=== PATIENT | female | born 1975 | race Caucasian/White ===

== ENCOUNTER 2016-08-28 08:54 | Day surgery (SDC) | payer BC ==
[~2016-08-28 08:54] MED LIST: RINGERS SOLUTION,LACTATED 1,000 ML IV PRN; ceFAZolin SODIUM 1 GM in DEXTROSE 5 % IN WATER 100 ML IV PRN
--- OUTSIDE RECORDS SUMMARY | 2016-08-28 08:57 | XMS REPORT | Continuity of Care Document ---
:1975 Author Organization [facility] ([facility]) Address [address] [place] [address] Phone [phone] Care Team Providers Name Role Phone Jessica Gallo Primary Care Provider [phone] Source Comments This disclosure is being made pursuant to the Care Everywhere program, applicable federal and state laws, and may not contain all informaitonavailable regarding this patient.[facility] ([facility]) Active Allergies and Adverse Reactions Allergen Noted Date Severity Reactions Comments Adhesive 02/01/2016 Rash bandaids in particular Pollen 02/01/2016 Rhinorrhea Current Medications Prescription Sig. Disp. Refills Start Date End Date Status ibuprofen 200 mg tablet Take 200 mg by mouth Active every 6 hours as needed. Active Problems No known active problems Social History Tobacco Use Types Packs/Day Years Used Date Current Every Day Smoker 0.5 15 Smokeless Tobacco: Never Used Tobacco Cessation:Ready to Quit: No Comments: Last Filed Vital Signs Vital Sign Reading Time Taken Blood Pressure 142/85 02/01/2016 2:20 PM CDT Pulse 89 02/01/2016 2:20 PM CDT Temperature 36.5 C (97.7 F) 02/01/2016 2:20 PM CDT Respiratory Rate - - Height 1.718 m (5' 7.64") 02/01/2016 2:20 PM CDT Weight 113.9 kg (251 lb 1.7 oz) 02/01/2016 2:20 PM CDT Body Mass Index 38.59 02/01/2016 2:20 PM CDT Oxygen Saturation - - Plan of Care Health Maintenance Due Date Last Done Comments Hepatitis B Vaccine (1 of 3 - Primary Series) 1975 Tdap Vaccine 01/20/1987 Lipid Disorder Screening 01/20/1994 MMR Vaccine 01/20/1994 Td Vaccine 01/20/1994 Pneumococcal Vaccine (1 of 1 - PPSV23) 01/20/1995 Cervical Cancer Screening 01/20/2006 Influenza Vaccine: Seasonal (#1) 12/25/2015 Mammogram 2016 Results from Last 3 Months Not on file
[2016-08-28] MEDS ORDERED: RINGERS SOLUTION,LACTATED 1,000 ML IV ONE ×2 (09:35→12:00)
[2016-08-28] MEDS ORDERED: LIDOCAINE HCL/EPINEPHRINE 50 ML VIAL IJ ONE ×2 (10:35)
--- NOTE | 2016-08-28 13:18 | OR ---
Operative Report - Dictated Report Narrative: DATE OF PROCEDURE: 08/28/2016 INDICATION: 41 year old female with severe dysmenorrhea and menorrhagia due to multiple enlarged fibroids PREOPERATIVE DIAGNOSIS: Severe dysmenorrhea and menorrhagia unresponsive to conservative therapy, symptomatic multiple enlarged fibroids POSTOPERATIVE DIAGNOSIS: Same OPERATION: Laparoscopic-assisted vaginal hysterectomy, Laparoscopic bilateral salpingectomy, Cystoscopy SURGEON: Leydi Resendiz D.O. BOBBIN STRIPPER: None ANESTHESIA: General ESTIMATED BLOOD LOSS: 125 mL FLUID REPLACEMENT: 1250 mL URINE OUTPUT: 125 mL of clear urine FINDINGS: 10 week size uterus with multiple intramural and pedunculated fibroids ranging from 2 to 16 cm, normal ovaries and tubes SPECIMEN(S): Uterus, cervix, fibroids and fallopian tubes DRAINS: Boggs to gravity drainage intraoperatively TECHNIQUE: The patient was taken to the operating room and placed in dorsal lithotomy position after adequate general anesthesia was obtained. The anterior lip of the cervix was grasped with a single-toothed tenaculum and a uterine manipulator was inserted into the cervical canal and attached to the tenaculum as a means to manipulate the uterus. A Boggs catheter was inserted to gravity drainage. Gloves were changed and attention was turned to the abdomen where the umbilicus and suprapubic region were injected with a 1% lidocaine epinephrine solution. A scalpel was used to score the skin and a 12 mm non-bladed trocar was inserted via direct technique under direct visualization. Pneumoperitoneum was created with CO2 gas. A 5 mm non-bladed trocar was inserted suprapubically in a similar fashion. Through these 2 ports the surgery was carried out with findings as noted above. The right fallopian tube was identified and followed out to the fimbriated end. The fallopian tube was coagulated with the Kleppinger's along the mesosalpinx. Using laparoscopic scissors, the tube was freed from the mesosalpinx to the base of the uterus. Using Kleppinger's and laparoscopic scissors the ovarian ligament was coagulated and transected and the broad ligament was coagulated and transected to the level of the uterine arteries. The exact same was done on the patient's left side. The CO2 gas was removed from the abdominal cavity and attention was turned to the pelvis. The uterine manipulator was removed from the cervix and another single-tooth tenaculum was placed on the cervix. The anterior and posterior vaginal mucosa was injected with 1 to lidocaine epinephrine solution and a paracervical block was given using the same solution. Posterior colpotomy was performed with Rojas scissors and a long weighted speculum was placed into the posterior cul-de-sac area anterior colpotomy was performed in a similar fashion of right Bruce retractor was used to retract the bladder. Bladder pillars were coagulated and transected with the LigaSure device. The left uterosacral ligament was grasped with a curved Mesquite transected and Bruce stitch tied. The exact same was done on the patient's right side. The uterine artery's and remaining pedicles were doubly coagulated and transected using LigaSure device. Cousin the size of the uterus to, it was bivalved and removed from the vagina. The large 16 cm fibroid was attached at the upper left fundus with a thick stalk. The Mesquite clamp was placed across the stalk and the uterus was freed from the fibroid. Attempt was made to deliver the fibroid through the vagina but because of its size we were unsuccessful. Grasping either side of the fibroid with a single-tooth tenaculum the center was cored out to reduce the bulk of the fibroid. Several more large pieces were removed in order to allow delivery of the fibroid through the vaginal cuff. The vaginal cuff was then closed with a series of 0 Vicryl sutures. Gloves were changed and attention was turned to the abdomen where the laparoscope was reinserted through the 12 mm trochar to assure excellent hemostasis. Trochars were removed under direct visualization. The fascia of the 12 mm port was closed with a single 0 Vicryl suture. The skin of both incisions was closed with 4-0 Monocryl. Dermabond was placed on the skin incisions. The Boggs catheter was removed from the vagina and cystoscopy was performed noting urine spurting freely from both ureteral orifices. Instruments were removed from the cervix and vagina. Sponge, lap, instrument, and needle count were correct x 2. DISPOSITION: The patient was awakened and transferred to post anesthesia care unit in good condition.
[2016-08-28] MEDS ORDERED: MORPHINE SULFATE 2 MG/ML DISP.SYRIN IV PRN (13:43)
[2016-08-28] MEDS ORDERED: oxyCODONE HCL/ACETAMINOPHEN 1 TAB TABLET PO PRN (13:44)
[2016-08-28] MEDS ORDERED: IBUPROFEN 800 MG TABLET PO PRN (13:45)
[2016-08-28 17:47] VITALS: BP 161/93
== END 2016-08-28 08:55 | disposition home or self-care (01) ==
LOC: AMB 08:54
PROVIDERS: ATTEND Obstetrics & Gynecology
PROC: 0UTC7ZZ Resection of Cervix, Via Natural or Artificial Opening (ICD-10-PCS; 2016-08-28)
PROC: 0UT74ZZ Resection of Bilateral Fallopian Tubes, Percutaneous Endoscopic Approach (ICD-10-PCS; 2016-08-28)
PROC: 0UT97ZZ Resection of Uterus, Via Natural or Artificial Opening (ICD-10-PCS; principal; 2016-08-28 09:45)
DX: D25.2 Subserosal leiomyoma of uterus (principal); D25.0 Submucous leiomyoma of uterus; N72 Inflammatory disease of cervix uteri; N83.8 Other noninflammatory disorders of ovary, fallopian tube and broad ligament; N94.6 Dysmenorrhea, unspecified; N92.0 Excessive and frequent menstruation with regular cycle; F17.200 Nicotine dependence, unspecified, uncomplicated; Z68.38 Body mass index [BMI] 38.0-38.9, adult